=== PATIENT | male | born 1960 | race Hispanic/Latino ===

== ENCOUNTER 2018-10-14 14:35 | Observation (INO) | payer OTHER ==
[~2018-10-14] VITALS: Ht 172.7 cm; Wt 179.8 kg
[2018-10-14 15:36] LABS: BASOPHILS % (AUTO) 1.3 % (0.0-5.0); EOSINOPHILS % (AUTO) 1.6 % (0.0-8.0); HEMATOCRIT 45.6 % (42-54); LYMPHOCYTES % (AUTO) 21.9 % (21.0-51.0); MEAN CORPUSCULAR HEMOGLOBIN 25.9 pg (27.0-33.0); MEAN CORPUSCULAR HGB CONC 32.2 g/dL (32.0-36.0); MEAN CORPUSCULAR VOLUME 80.6 fL (79-99); MONOCYTES % (AUTO) 6.7 % (3.0-13.0); NEUTROPHILS % (AUTO) 68.5 % (40.0-77.0); PLATELET COUNT (AUTO) 207 K/uL (130-400); RED BLOOD CELL COUNT(AUTO) 5.66 MIL/uL (4.50-6.20); RED CELL DISTRIBUTION WIDTH 16.7 % (11.0-15.5); WHITE BLOOD COUNT (AUTO) 8.7 K/uL (4.8-10.8)
[2018-10-14] MEDS ORDERED: ZOSYN 3.375GM+NS 50ML 50 ML IV ONE (15:39)
[2018-10-14 15:49] LABS: POTASSIUM 4.3 mmol/L (3.5-5.1)
[2018-10-14 15:53] LABS: ALBUMIN 3.1 g/dL (3.5-5.0); BILIRUBIN,TOTAL 0.5 mg/dL (0.2-1.0); MAGNESIUM 1.3 mg/dL (1.80-2.40); PHOSPHORUS 3.3 mg/dL (2.5-4.9)
[2018-10-14] MEDS ORDERED: VANCOMYCIN 1GM+NS 250ML 250 ML IV ONE (16:26)
[2018-10-14] MEDS ORDERED: INSULIN HUMULIN R 100 UNIT/ML 3ML ONE (16:57)
[2018-10-14 18:44] VITALS: BP 166/84
[2018-10-14 19:57] VITALS: BP 133/69
[2018-10-14] MEDS ORDERED: GLUCAGON 1MG KIT 1 MG ML IM PRN (20:45)
[2018-10-14] MEDS ORDERED: MORPHINE SULFATE 2 MG/ML 1ML SYG IVP PRN (20:45)
[2018-10-14] MEDS ORDERED: ONDANSETRON HCL 4 MG/2 ML VIAL IVP PRN (20:45)
[2018-10-14] MEDS ORDERED: COMPOUND IV REFRIGERATED 1 EACH IVSOLN MISC PRN (20:45)
[2018-10-14] MEDS ORDERED: SODIUM CHLORIDE 0.9% 10 ML VIAL IVP PRN (20:45)
[2018-10-14] MEDS ORDERED: DEXTROSE 50%-WATER 50 ML DISP.SYRIN IV PRN (20:45)
[2018-10-14] MEDS: MAGNESIUM 2GM PREMIX 50ML 50 ML IV PRN (21:00)
[2018-10-14] MEDS ORDERED: VANCOMYCIN 2.5 GM in SODIUM CHLORIDE 0.9% 500ML 500 ML IV ONE (21:00)
[2018-10-14 23:35] VITALS: BP 120/68
[2018-10-14] MEDS: ZOSYN 3.375GM+NS 50ML 50 ML IV SCH (23:55)
[2018-10-15] MEDS: INSULIN R NPO SSI SQ SCH ×4 (00:01→17:39)
[2018-10-15 04:19] VITALS: BP 131/74
[2018-10-15] MEDS: ZOSYN 3.375GM+NS 50ML 50 ML IV SCH ×2 (06:39→15:51)
[2018-10-15] MEDS: VANCOMYCIN 1GM+NS 250ML 250 ML IV SCH ×2 (10:11→22:27)
[2018-10-15 11:00] VITALS: BP 122/79
[2018-10-15] MEDS ORDERED: ALBUTEROL SULFATE 0.083% 2.5 MG/3 ML INH IH PRN (11:30)
[2018-10-15] MEDS ORDERED: NITROGLYCERIN 0.4 MG SL TAB SL PRN (11:30)
[2018-10-15] MEDS ORDERED: HYDRALAZINE HCL 20 MG/ML VIAL IV PRN (11:30)
[2018-10-15] MEDS ORDERED: MAG HYDROX/AL HYDROX/SIMETH ES 30 ML SUSP UDCUP PO PRN (11:30)
[2018-10-15] MEDS ORDERED: ZOLPIDEM TARTRATE 5 MG TAB PO PRN (11:30)
[2018-10-15] MEDS ORDERED: DIPHENHYDRAMINE HCL 25 MG CAPSULE PO PRN (11:30)
[2018-10-15] MEDS ORDERED: ONDANSETRON HCL 4 MG/2 ML VIAL IV PRN (11:30)
[2018-10-15] MEDS ORDERED: LACTULOSE 20 GM/30 ML UDCUP PO PRN (11:30)
[2018-10-15 11:39] LABS: BASOPHILS % (AUTO) 0.7 % (0.0-5.0); EOSINOPHILS % (AUTO) 2.9 % (0.0-8.0); HEMATOCRIT 44.7 % (42-54); LYMPHOCYTES % (AUTO) 25.6 % (21.0-51.0); MEAN CORPUSCULAR HEMOGLOBIN 26.5 pg (27.0-33.0); MEAN CORPUSCULAR HGB CONC 32.9 g/dL (32.0-36.0); MEAN CORPUSCULAR VOLUME 80.4 fL (79-99); MONOCYTES % (AUTO) 6.1 % (3.0-13.0); NEUTROPHILS % (AUTO) 64.7 % (40.0-77.0); NUCLEATED RED BLOOD CELLS 0.1 % (0.0-0.19); PLATELET COUNT (AUTO) 172 K/uL (130-400); RED BLOOD CELL COUNT(AUTO) 5.56 MIL/uL (4.50-6.20); RED CELL DISTRIBUTION WIDTH 16.6 % (11.0-15.5)
[2018-10-15 11:48] LABS: HEMOGLOBIN A1C 10.3 % (4.0-6.0)
[2018-10-15 11:51] LABS: INR 1.11 (0.85-1.15); PARTIAL THROMBOPLASTIN TIME 29.7 SEC (26.3-35.5); PROTHROMBIN TIME 11.6 SEC (9.6-11.6)
[2018-10-15 12:00] LABS: ALBUMIN 3.1 g/dL (3.5-5.0); B-TYPE NATRIURETIC PEPTIDE < 5 pg/mL (0-100); BILIRUBIN,TOTAL 0.7 mg/dL (0.2-1.0); CREATININE 0.9 mg/dL (0.5-1.5); MAGNESIUM 1.9 mg/dL (1.80-2.40); PHOSPHORUS 3.1 mg/dL (2.5-4.9); POTASSIUM 4.2 mmol/L (3.5-5.1); THYROID STIMULATING HORMONE 1.32 uIU/mL (0.36-3.74); TOTAL PROTEIN, SERUM 7.7 g/dL (6.0-8.3)
[2018-10-15 16:00] VITALS: BP 142/86
--- NOTE | 2018-10-15 16:30 | NUR ---
CM MEt w patient w friend at bedside- madonnaox3, mobidly obese ++, staets has good mobility without dmes, has a walker but does not use, according to pt; has a provider 2 hrs a day; call [facility] on discharge for transport- [phone]. dcp is home Addendum: 10/16/18 at 0837 by RACHEL NUR RN CM Amended: Links added.
[2018-10-15] MEDS: MAGNESIUM 2GM PREMIX 50ML 50 ML IV PRN (17:25)
[2018-10-15 19:57] VITALS: BP 141/88
[2018-10-15] MEDS ORDERED: INSULIN GLARGINE 100 UNITS/ML 10 ML VIAL SQ SCH (21:00)
[2018-10-15] MEDS ORDERED: SODIUM CHLORIDE 0.9% 250 ML IV ONE (22:24)
[2018-10-16] MEDS: ZOSYN 3.375GM+NS 50ML 50 ML IV SCH ×3 (00:30→15:00)
[2018-10-16 00:36] VITALS: BP 139/78
[2018-10-16 04:23] VITALS: BP 145/89
[2018-10-16] MEDS: INSULIN HUMULIN R 100 UNIT/ML 3ML SQ SCH ×3 (07:01→17:24)
[2018-10-16 08:00] VITALS: BP 125/74
[2018-10-16] MEDS ORDERED: ENOXAPARIN SODIUM 40 MG/0.4 ML SYRINGE SQ SCH ×2 (09:00)
[2018-10-16] MEDS ORDERED: COMPOUND IV REFRIGERATED 1 EACH IVSOLN MISC PRN (09:30)
[2018-10-16] MEDS ORDERED: VANCOMYCIN 1.25 GM in SODIUM CHLORIDE 0.9% 250 ML IV SCH (09:30)
[2018-10-16 11:00] VITALS: BP 125/69
[2018-10-16] MEDS ORDERED: CLIN300C9 PO (12:46)
[2018-10-16 16:00] VITALS: BP 136/64
--- NOTE | 2018-10-16 19:26 | NUR ---
DISCHARGE-PATIENT'S RIDE HERE TO TAKE HIM HOME. PATIENT AAOX3, NO ACUTE DISTRESS NOTED, DENIES ANY DISCOMFORT. IV LINE DC'D AND DISCHARGE INSTRUCTIONS GIVEN BY DAY SHIFT NURSE.
== END 2018-10-16 19:44 | disposition home or self-care (01) ==
LOC: EDH 14:35 → EDHIP 15:00 → INTOOBSV 15:00 → 3BH 18:28
PROVIDERS: ADMIT Internal Medicine; ATTEND Internal Medicine
DX: L03.311 Cellulitis of abdominal wall (principal); E11.65 Type 2 diabetes mellitus with hyperglycemia; E66.2 Morbid (severe) obesity with alveolar hypoventilation; E78.1 Pure hyperglyceridemia; E78.5 Hyperlipidemia, unspecified; I10 Essential (primary) hypertension; M79.3 Panniculitis, unspecified; Z79.4 Long term (current) use of insulin; Z79.899 Other long term (current) drug therapy; Z79.01 Long term (current) use of anticoagulants
CPT/HCPCS: 36415 ×3; 74176; 80053 ×2; 80061; 80202; 82948 ×8; 83036; 83735 ×3; 83880; 84100 ×2; 84443; 85025 ×2; 85610; 85730; 87040 ×2; 94660; 94664; 96365; 96366 ×3; 96367; 96368; 96372 ×2; 99284; G0378 ×49; J1650; J1815 ×6; J2543 ×7; J3370 ×5; J3475 ×2; J7030 ×2; J7040

== ENCOUNTER 2019-08-24 17:37 | Emergency (ER) | payer OTHER ==
[~2019-08-24 17:37] MED LIST: CLIN300C9 PO
[2019-08-24] MEDS ORDERED: MAG HYDROX/AL HYDROX/SIMETH ES 30 ML SUSP UDCUP ONE (18:06)
[2019-08-24] MEDS ORDERED: LIDOCAINE HCL 2% VISCOUS 15 ML UDCUP ONE (18:06)
== END 2019-08-24 18:55 | disposition home or self-care (01) ==
LOC: EDH 17:37
DX: R10.13 Epigastric pain (principal); E11.9 Type 2 diabetes mellitus without complications; E78.5 Hyperlipidemia, unspecified; I10 Essential (primary) hypertension
CPT/HCPCS: 93005; 99281

== ENCOUNTER 2019-08-24 19:47 | Emergency (ER) | payer OTHER | END 2019-08-24 21:32 | disposition home or self-care (01) | LOC: EDH 19:47 | DX: R10.13 Epigastric pain (principal); E11.9 Type 2 diabetes mellitus without complications; E78.5 Hyperlipidemia, unspecified; I10 Essential (primary) hypertension | CPT/HCPCS: 99281 ==

== ENCOUNTER 2019-08-29 12:57 | Emergency (ER) | payer OTHER ==
[2019-08-29] MEDS ORDERED: SODIUM CHLORIDE 0.9% 1000ML 1,000 ML IV ONE ×2 (13:35→15:25)
[2019-08-29] MEDS ORDERED: ONDANSETRON HCL 4 MG/2 ML VIAL ONE (13:35)
[2019-08-29 13:45] LABS: BASOPHILS % (AUTO) 0.6 % (0.0-5.0); EOSINOPHILS % (AUTO) 3.8 % (0.0-8.0); HEMATOCRIT 40.4 % (42-54); LYMPHOCYTES % (AUTO) 25.1 % (21.0-51.0); MEAN CORPUSCULAR HEMOGLOBIN 24.6 pg (27.0-33.0); MEAN CORPUSCULAR HGB CONC 30.2 g/dL (32.0-36.0); MEAN CORPUSCULAR VOLUME 81.6 fL (79-99); MONOCYTES % (AUTO) 10.3 % (3.0-13.0); PLATELET COUNT (AUTO) 200 K/uL (130-400); RED BLOOD CELL COUNT(AUTO) 4.95 MIL/uL (4.50-6.20); RED CELL DISTRIBUTION WIDTH 17.4 % (11.0-15.5); WHITE BLOOD COUNT (AUTO) 6.5 K/uL (4.8-10.8)
[2019-08-29 14:09] LABS: CREATININE 1.9 mg/dL (0.5-1.5); POTASSIUM 5.7 mmol/L (3.5-5.1)
[2019-08-29 14:13] LABS: ALBUMIN 2.6 g/dL (3.5-5.0); BILIRUBIN,DIRECT 0.1 mg/dL (0.0-0.3); BILIRUBIN,TOTAL 0.3 mg/dL (0.2-1.0)
[2019-08-29 14:20] LABS: APPEARANCE,URINE Clear (CLEAR); BILIRUBIN,URINE Negative (NEGATIVE); COLOR,URINE Yellow (YELLOW); GLUCOSE, URINE (UA) >=1000 mg/dL (NEGATIVE); KETONES,URINE Negative (NEGATIVE); LEUKOCYTE ESTERASE ,URINE Moderate (NEGATIVE); NITRATE,URINE Negative (NEGATIVE); OCCULT BLOOD,URINE Trace (NEGATIVE); PH,URINE 5.5 (5.0-8.0); PROTEIN,URINE Negative (NEGATIVE); UROBILINOGEN,URINE 0.2 mg/dL (0.2-1.0)
[2019-08-29 14:47] LABS: BACTERIA,URINE Few /HPF (None Seen)
[2019-08-29 14:48] LABS: RBC,URINE 0-1 /HPF (0-1)
[2019-08-29] MEDS ORDERED: SODIUM CHLORIDE 0.9% 100 ML IV ONE (15:24)
[2019-08-29] MEDS ORDERED: CEFTRIAXONE SODIUM 2 GM VIAL ONE (15:24)
== END 2019-08-29 18:40 | disposition home or self-care (01) ==
LOC: EDH 12:57
DX: N39.0 Urinary tract infection, site not specified (principal); E78.5 Hyperlipidemia, unspecified; I10 Essential (primary) hypertension; Z79.4 Long term (current) use of insulin
CPT/HCPCS: 36415; 74176; 80048; 80076; 81001; 82550; 82948; 83605; 83690; 84484; 85025; 87040 ×2; 87088; 93005; 96374; 96375; 99285; J0696; J2405; J7030 ×2